=== PATIENT | male | born 1945 | race Caucasian/White ===

== ENCOUNTER 2025-02-12 12:25 | Emergency (ER) | payer MEDICARE, OTHER ==
[2025-02-12] MEDS: Sodium Chloride 0.9% 1,000 ML IV ONE (13:33)
[2025-02-12 13:39] LABS: BASOPHILS ABSOLUTE AUTO 0.1 K/mm3 (0.0-0.2); BASOPHILS PERCENT AUTO 0.4 % (0.0-1.0); EOSINOPHILS PERCENT AUTO 0.1 % (0.0-6.0); HEMATOCRIT 45.5 % (42.0-52.0); HEMOGLOBIN 14.6 gm/dl (14.0-18.0); IMMATURE GRAN ABSOLUTE AUTO 0.18 K/mm3 (0.00-0.05); LYMPHOCYTES ABSOLUTE AUTO 1.8 K/mm3 (1.0-4.8); LYMPHOCYTES PERCENT AUTO 9.5 % (24.0-44.0); MEAN CORPUSCULAR HEMOGLOBIN 29.2 pg (28.0-32.0); MEAN CORPUSCULAR HGB CONC 32.1 g/dl (32.0-36.0); MEAN PLATELET VOLUME 9.6 fl (9.4-12.4); MONOCYTES ABSOLUTE AUTO 2.3 K/mm3 (0.0-0.8); MONOCYTES PERCENT AUTO 12.4 % (0.0-8.0); NEUTROPHILS ABSOLUTE AUTO 14.3 K/mm3 (1.8-7.7); NEUTROPHILS PERCENT AUTO 76.6 % (41.0-71.0); PLATELET COUNT,PLT 383 K/mm3 (150-400); WHITE BLOOD CELL COUNT,WBC 18.65 K/mm3 (3.9-11.3)
[2025-02-12 14:00] LABS: SLIDE REVIEW ABNORMAL SMEAR
[2025-02-12 14:01] LABS: A/G RATIO 0.6 (1-2); ALBUMIN 3.1 g/dl (3.4-5.0); ANION GAP 13.3 (5-15); BILIRUBIN TOTAL 0.6 mg/dL (0.2-1.0); BUN/CREATININE RATIO 17.3 (14-18); CALCIUM 9.8 mg/dL (8.5-10.1); CREATININE 1.5 mg/dL (0.7-1.3); EST CRCL DRUG DOSING (CG) 43.93 mL/min; MAGNESIUM 2.6 mg/dL (1.8-2.4); POTASSIUM,K 4.3 mEq/L (3.5-5.1); PROTEIN TOTAL,TP 8.5 g/dl (6.4-8.2)
[2025-02-12 14:04] LABS: TSH 1.274 uIU/mL (0.358-3.74)
[2025-02-12 14:05] LABS: INR 1.08; PROTHROMBIN TIME 11.4 SECONDS (9.7-12.0)
[2025-02-12 14:06] LABS: PTT,PARTIAL THROMBOPLSTIN TIME 28.9 SECONDS (21.7-31.4)
[2025-02-12 15:04] LABS: APPEARANCE,URINE CLEAR (Clear); BILIRUBIN,URINE NEGATIVE (Negative); COLOR,URINE YELLOW (Yellow); GLUCOSE,URINE 3+ (Negative); KETONES,URINE 1+ (Negative); LEUKOCYTE ESTERASE,URINE 1+ (Negative); NITRITE,URINE POSITIVE (Negative); OCCULT BLOOD,URINE TRACE-LYSED (Negative); PROTEIN,URINE 1+ (Negative); UROBILINOGEN,URINE 0.2 (0.2-1.0)
[2025-02-12 15:17] LABS: RBC,URINE 0-5 /hpf (0-5)
[2025-02-12 15:18] LABS: EPITHELIAL CELLS,URINE 0-5 /hpf (0-5); WBC CLUMPS,URINE FEW /hpf (NOT SEEN)
[2025-02-12 15:19] LABS: BACTERIA,URINE MANY /hpf (FEW); MUCUS,URINE FEW /hpf (FEW)
== END 2025-02-12 18:30 | disposition home or self-care (01) ==
LOC: JD.ED 12:25
DX: N30.01 Acute cystitis with hematuria (principal); Z88.0 Allergy status to penicillin; Z91.041 Radiographic dye allergy status; Z79.899 Other long term (current) drug therapy
CPT/HCPCS: 36415; 71045; 80053; 81001; 83605; 83735; 84443; 84484; 85025; 85610; 85730; 86308; 87040; 87086; 93005; 96360; 99285; J7030; 87088; 87186; 93010; 99283